=== PATIENT | male | born 1995 | race Caucasian/White ===

== ENCOUNTER 2017-06-25 01:55 | Emergency (ER) | payer OTHER ==
[~2017-06-25] VITALS: Ht 182.9 cm; Wt 72.7 kg
[2017-06-25 02:10] VITALS: BP 123/76; PULSE 68; RESP 16; O2SAT 100
--- NOTE | 2017-06-25 02:14 | ED.REPORT ---
HPI-Psychiatric Illness Date of Service Jun 25, 2017 ED Provider: Jose Hawkins MD Patient is a 22 year old male with a history of anxiety and chronic depression who presents to the ED via police for attempted suicide tonight. He states that he took 3 Prozac tonight after his stepmother threatened to kick him out. Police also report that they found the patient with a nonrebreather mask and a helium tank in a field. The patient states that he was breathing helium for "a minute or two" but became scared and stopped. This was his first suicidal attempt. Patient denies auditory or visual hallucinations, recent drug use, or alcohol use today. He has sought treatment for his depression and has been on Prozac for 5-6 months. The patient denies a family history of suicide. Nursing Notes Stated Complaint: SUICIDAL IDEATION Chief Complaint: Psychiatric Complaint Nursing Notes Reviewed: Yes Allergies: Uncoded Allergies: PENICILLIN (Allergy, Unknown, 06/25/17) General Time Seen by MD: 02:14 Chief Complaint Suicidal attempt Hx Obtained From: Patient, Police Arrived By: Police Onset Occurred: 1 - 4 hours ago Recent Healthcare: No recent doctor visit, No recent hospitalization Similar Sx Previous: No Risk-Psychiatric Illness Suicide Risk Stratification Suicide Risk Factors - Adult: : Alcohol use: Substance abuseNo: Family Hx of Suicide, Previous attempt RF Statements: Risk factors reviewed Past Medical History Past Medical History anxiety Reports: Depression (since 12 years old) Past Surgical History colonoscopy Smoking History Unknown if Ever Smoker Social History Alcohol Use: "Social" Drug Use: THC Ambulatory Status Independent Review of Systems Respiratory: Denies: Non-productive cough, Prod cough, clear, Shortness of breath Cardiovascular: Denies: Chest pain GI: Reports: Abdominal pain, Nausea, Denies: Vomiting Skin: Denies Rash Psychiatric: Reports: Depression, Suicidal ideation, Denies: Hallucinations, auditory, Hallucinations, visual Complete sys rev & neg: except as marked. Physical Exam Initial Vital Signs Vital Signs (First) Date Time Temp Pulse Resp B/P Pulse Ox O2 Delivery O2 Flow Rate FiO2 06/25/17 02:10 36.6 68 16 123/76 100 Room Air Initial VS: Reviewed, Vital signs normal Head / Eyes: Atraumatic, Normocephalic Neck: Supple, Full range of motion Extremities: Vascular intact, Neuro intact, No swelling, No tenderness Skin: Warm, Dry, No cyanosis General/Constitutional: Awake, Alert Neurologic: Oriented X3, Speech NL, No motor deficits, No sensory deficits Psychiatric: Not homicidal, No hallucinations Abnormal Mood/Affect: Positive: Depressed, Flat affect Abnormal Thinking / Perception: Positive: Suicidal, with plan Not responding to internal stimuli Respiratory / Chest: Atraumatic, Breath sounds NL, Breath sounds = bilat, No respiratory distress Cardiovascular: Heart rate NL, Regular rhythm, Heart sounds NL Interpretation & Diagnostics Lab Results Interpretation Result Diagram: 06/25/17 0320 06/25/17 0320 Test 06/25/17 03:20 White Blood Count 11.7th/mm3 (3.8-10.1) Red Blood Count 4.61mil/mm3 (4.40-5.80) Hemoglobin 14.1g/dL (13.8-17.2) Hematocrit 42.0% (41.0-50.0) Mean Corpuscular Volume 91.1fL (81-100) Mean Corpuscular Hemoglobin 30.6pg (27.0-35.0) Mean Corpuscular Hemoglobin Concent 33.6% (32.0-37.0) Red Cell Distribution Width 12.6% (12.3-15.4) Platelet Count 240bil/L (150-400) Neutrophils (%) (Auto) 68.7% (40-74) Lymphocytes (%) (Auto) 21.3% (14-46) Monocytes (%) (Auto) 8.7% (4-12) Eosinophils (%) (Auto) 0.7% (0-5) Basophils (%) (Auto) 0.3% (0-3) Sodium Level 142mEq/L (134-144) Potassium Level 4.0mEq/L (3.5-5.2) Chloride Level 102mEq/L (97-108) Carbon Dioxide Level 27mmol/L (18-29) Blood Urea Nitrogen 9mg/dL (6-20) Creatinine 0.87mg/dL (0.76-1.27) Estimat Glomerular Filtration Rate 119mL/min (>59) Glucose Level 100mg/dL (60-99) Calcium Level 9.6mg/dL (8.5-10.1) Total Bilirubin 0.4mg/dL (0.0-1.2) Aspartate Amino Transf (AST/SGOT) 16U/L (0-50) Alanine Aminotransferase (ALT/SGPT) 14U/L (0-44) Alkaline Phosphatase 89U/L (25-150) Total Protein 7.9g/dL (6.4-8.4) Albumin 4.8g/dL (3.4-5.0) Thyroid Stimulating Hormone (TSH) 3.580uIU/mL (0.450-4.500) Hold Carmen Top Tube Received (Received) Re-Eval/Medical Decision Med Decision/Clinical Course 22-year-old with chronic depression since early adolescence presents after suicide attempt tonight. He is brought in by police, interrupted in the active attempting to suffocate himself with helium. He continues to endorse chronic depression and suicidality, although he says he is "scared" to commit suicide. He has been cooperative here. DCR was requested but consult refused by volunteers of [employer]. Await's director social welfare this morning. Family's presence and can provide affidavits as necessary. He left a suicide note at home with his mother in [place]. She has this with her. He is declining to see any family at this point. He is signed out at [address] Wiggins Source of Hx: Old records Re-Evaluation/Progress : Time of Eval: 04:02 Re-Evaluation/Progress Note: Pt rechecked, who is stable. He does not wish to speak with his stepmother atthis time. The plan for social work evaluation in the morning is discussed. The pt agrees with the plan. Consultation #1: Call Returned at: 03:26 Note: Spoke with [facility] regarding possible psychiatric evaluation. Consultation #2: Call Returned at: 03:58 Note: Spoke with pt's stepmother regarding pt's case. Stepmother is updated on pt's condition. Consultation #3: Call Returned at: 04:53 Note: Spoke with pt's stepmother and father in the waiting room about pt's condition. Consultation #4: Call Returned at: 05:32 Note: Spoke with pt's biological mother in the waiting room about pt's condition. Counseled Regarding: Diagnosis, Lab results Discharge & Departure Shift Change Sign-Out Patient Care Transferred: Yes Discussed Complaint(s): Yes Laboratory Evaluation: Lab evaluation discussed Impression: Primary Impression: Depression Depression Type: major depressive disorder Major depression recurrence: recurrent Active/Remission status: currently active Major depression episode severity: severe Psychotic features: without psychotic features Qualified Code: F33.2 - Major depressive disorder, recurrent severe without psychotic features Additional Impressions: Suicide attempt Suicidal ideation Discharge Condition All VS Reviewed: Yes Condition: Stable Referrals: Partha Lei MD (PCP) Care Transferred to: Dr. Wiggins Care Transferred at: 06:00 Scribe Attestation Portions of this note were transcribed by Renuka Neff and Meli Cid. I, Dr. Hawkins, personally performed the history, physical exam and medical decision-making; I reviewed and confirmed the accuracy of the information in the transcribed note. copies to: Partha Lei MD, Christopher W MD Jun 25, 2017 02:14 Renuka Neff Jun 25, 2017 02:29 MELI CID Jun 25, 2017 03:54
[2017-06-25 03:25] LABS: BASOPHILS % (AUTO) 0.3 % (0-3); EOSINOPHILS % (AUTO) 0.7 % (0-5); MONOCYTES % (AUTO) 8.7 % (4-12); Mean Corpuscular Hemoglobin 30.6 pg (27.0-35.0); Mean Corpuscular Volume 91.1 fL (81-100); NEUTROPHILS % (AUTO) 68.7 % (40-74); Platelet Count 240 bil/L (150-400)
[2017-06-25 09:34] VITALS: BP 106/64; PULSE 58; RESP 17; O2SAT 98
[2017-06-25 13:33] VITALS: BP 116/73; PULSE 72; RESP 18; O2SAT 96
[2017-06-25 14:06] VITALS: BP 118/74; PULSE 64; RESP 17; O2SAT 96
== END 2017-06-25 14:04 | disposition home or self-care (01) ==
LOC: SED 01:55
DX: F33.2 Major depressive disorder, recurrent severe without psychotic features (principal); T14.91 Suicide attempt; T43.222A Poisoning by selective serotonin reuptake inhibitors, intentional self-harm, initial encounter; X83.8XXA Intentional self-harm by other specified means, initial encounter; Y93.89 Activity, other specified; Y92.018 Other place in single-family (private) house as the place of occurrence of the external cause; Y99.8 Other external cause status; F41.9 Anxiety disorder, unspecified; Z88.0 Allergy status to penicillin